=== PATIENT | female | born 1995 | race Caucasian/White ===

== ENCOUNTER → 2020-12-06 01:53 | Outpatient (CLI) | payer BC, SELFPAY ==
[2020-12-06 19:23] LABS: SARS-CoV-2 RNA PCR Negative
== END ==
PROVIDERS: PCP Nurse Practitioner Adult Health; Visit Provider Student in an Organized Health Care Education/Training Program
DX: Z01.812 Encounter for preprocedural laboratory examination (principal); Z20.822 Contact with and (suspected) exposure to COVID-19
CPT/HCPCS: C9803; U0003; U0005

== ENCOUNTER 2020-12-09 01:01 | Day surgery (SDC) | payer BC, SELFPAY ==
[2020-12-05 11:36] VITALS: BMI 19.8
--- NOTE | 2020-12-08 09:11 | WPDANESEPPF ---
Anes - Initial Pre Proc Eval Procedure: Operation Date: 12/09/20 10:30 Proposed Procedures p Loop Electrical Excision Procedure - Aliya Nichols MD Date/Time: 12/08/20 09:11 Surgeon: Aliya Nichols MD Pre Op Diagnosis: MARIA II Patient Data Age: 25 Gender: F Height: 1.73 m Weight: 59 kg Allergies Allergy/AdvReac Type Severity Reaction Status Date / Time Sulfa (Sulfonamide Allergy Severe Hives Verified 12/09/20 08:44 Antibiotics) sulfamethoxazole Allergy Severe Hives Verified 12/09/20 08:44 tetracycline Allergy Severe Hives Verified 12/09/20 08:44 trimethoprim Allergy Severe Hives Verified 12/09/20 08:44 MINOCYCLINE HCL Allergy Severe Rash Uncoded 12/05/20 11:34 Home Medications Medication Instructions Recorded Confirmed Type escitalopram oxalate 20 mg tablet 20 mg PO HS 10/28/20 12/09/20 History linaclotide 145 mcg capsule 145 mcg PO DAILY 11/30/20 12/09/20 History norethindrone-e.estradiol-iron 1 cap PO HS 12/05/20 12/09/20 History [Taytulla] ubrogepant [Ubrelvy] 50 mg PO ONCE 12/05/20 12/09/20 History Patient hx anesthesia problems: none Family hx anesthesia problems: none PMFSH Past Medical History Medical History Abnormal Pap smear of cervix 10/28/20 LSIL Anxiety and depression Endometriosis Gastroparesis Urinary incontinence Surgical History Surgical History H/O laparoscopy x 2 2012 2018 Family History Family History Grandparent Diabetes mellitus Mother Family history of thyroid disease Family history of migraine headaches Asthma Family history of anemia Family history of gynecological problem Father Family history of arthritis Other Family history of cardiovascular disease Family history of congestive heart failure Family history of elevated blood lipids Family history of hepatitis Family history of liver disease Family history of osteoporosis Social History Social History Smoking status: Never smoker Second hand tobacco smoke exposure: No Alcohol intake: current Alcohol use details: 2/MONTH Substance use: current Substance use type: marijuana Other substance usage details: FLOWER (SMOKE) EVERY COUPLE DAYS Last use: 12/04/20 Living arrangements: with family Spiritual care concerns: No Anes - Eval Final PreProcedure Day of Procedure 12/08/20 09:11 Patient weight: thin Heart: regular rate and rhythm Lungs: clear to auscultation and normal air movement Airway: Mallampati scale class II Neurological: alert and oriented Last oral intake: >/= 8 hours ASA classification: II Emergent: no Anesthetic plan: proceed Anesthesia type and monitoring: general GIVS and standard monitoring Informed Consent: The patient's anesthetic plan and its attendant risks and benefits were discussed with the patient/family/POA. Questions were solicited and answers provided to the satisfaction of the patient/family/POA.
--- NOTE | 2020-12-08 13:46 | PM.IMHP ---
H&P: HPI History of Present Illness Date/Time: 12/08/20 13:46 The patient is a 25yo nulligravid woman with a history of MARIA 2 who presents for a scheduled LEEP. Patient had a routine pap smear in 10/2020 that showed LGSIL. A colposcopy was performed in 11/2020 and cervical biopsy confirmed MARIA 2. Discussion had with patient regarding management options and decision was made proceed with LEEP procedure. Patient reports feeling well today without complaints. Chief Complaint: MARIA 2 Review of Systems Review of Systems: All systems reviewed & are unremarkable except as noted in HPI and below Constitutional: Constitutional: Reports as per HPI, Reports no additional constitutional complaints, Denies chills, Denies fever(s), Denies headache(s) and Denies night sweats Eyes: Eyes: Reports as per HPI and Reports no additional eye complaints ENT: Reports system reviewed and no additional complaints, except as documented, Reports as per HPI, Reports Normal hearing present and Denies headache(s) Cardiovascular: Cardiovascular: Reports as per HPI, Reports no additional cardiovascular complaints, Denies chest pain and Denies dyspnea Respiratory: Respiratory: Reports as per HPI, Reports no additional respiratory complaints, Denies cough and Denies dyspnea Gastrointestinal: Gastrointestinal: Reports as per HPI, Reports no additional gastrointestinal complaints, Denies abdominal pain, Denies change in bowel habits, Denies change in stool character, Denies nausea and Denies vomiting Genitourinary: Genitourinary: Reports no additional female genitourinary complaints, Reports as per HPI, Denies abnormal vaginal bleeding, Denies genital lesions, Denies hot flashes, Denies dyspareunia, Denies pelvic pain, Denies sexual dysfunction, Denies urinary incontinence, Denies vaginal discharge, Denies vaginal dryness and Denies vaginal odor Musculoskeletal: Musculoskeletal: Reports no additional musculoskeletal complaints and Reports as per HPI Integumentary/Breasts: Skin/Breast: Reports system reviewed and no additional complaints, except as docu, Reports as per HPI, Denies breast pain and Denies nipple discharge Neurologic: Reports system reviewed and no additional complaints, except as documented, Reports as per HPI, Reports Normal hearing present and Denies headache(s) Psychiatric: Psychiatric: Reports no additional psychiatric complaints, Reports as per HPI, Denies anxiety and Denies depression Endocrine: Endocrine: Reports no additional endocrine complaints and Reports as per HPI Hematologic/Lymphatic: Hematologic/Lymphatic: Reports no additional hematologic/lymphatic complaints and Reports as per HPI Allergic/Immunologic: Allergic/Immunologic: Reports no additional allergic/immunologic complaints and Reports as per HPI PMF Past Medical History Medical History Abnormal Pap smear of cervix 10/28/20 LSIL Anxiety and depression Endometriosis Gastroparesis Urinary incontinence Surgical History Surgical History H/O laparoscopy x 2 2012 2018 Family History Family History Grandparent Diabetes mellitus Mother Family history of thyroid disease Family history of migraine headaches Asthma Family history of anemia Family history of gynecological problem Father Family history of arthritis Other Family history of cardiovascular disease Family history of congestive heart failure Family history of elevated blood lipids Family history of hepatitis Family history of liver disease Family history of osteoporosis Social History Social History Smoking status: Never smoker Second hand tobacco smoke exposure: No Alcohol intake: current Substance use: current Substance use type: marijuana Other substance usage
[2020-12-09 09:08] VITALS: BP 113/83; PULSE 82; RESP 16; TEMP 36.9; O2SAT 100
[2020-12-09] MEDS: LACTATED RINGERS 1,000 ML 30 ML IV CONT ×2 (09:13→10:18)
[2020-12-09] MEDS: ACETAMINOPHEN 500 MG TABLET 1000 MG PO (09:14)
--- NOTE | 2020-12-09 09:15 | WPDHPUPDATE1 ---
History and Physical Update Update Date/Time: 12/09/20 09:15 History and Physical has been reviewed, including an updated exam of the patient. There are NO changes in the patient's condition. Risks, benefits, and alternatives have been discussed and questions answered. Patient agrees to proceed with procedure.
--- NOTE | 2020-12-09 09:19 | P.OP_ITS ---
Procedure Note - Detailed Date of procedure: 12/09/20 Pre-op diagnosis: MARIA II Post-op diagnosis: same Procedure performed: Loop electrosurgical excision procedure Description of procedure: The patient was taken to the operating room where she self-transferred to the operating room table. She was placed in dorsal supine position. Anesthesia was administered and found to be adequate. The patient was repositioned in dorsal lithotomy position and prepped and draped in the usual sterile fashion. A red rubber catheter was used to drain the bladder of 25cc of concentrated urine. A coated bivalve speculum was inserted into the vagina and suction tubing was connected to the speculum. The cervix was well visualized. A paracervical block was performed with 1% lidocaine. 5 cc of lidocaine was administered on both sides for a total of 10 cc. Lugol's solution was applied across the entire surface of the cervix. A wide area of non-uptake was noted circumferentially around the cervix encompassing almost the entire anterior surface of the cervix. A medium-size loop was selected and connected to the electrical generator. This loop was used to make two passes across the cervix, The first pass was made to excise the inferior portion of the anterior surface of the cervix. The specimen was removed and set aside. A second pass was made to excise the superior portion of the anterior surface of the cervix and this specimen was also set aside. The specimen were tagged with a suture. An endocervical curettage was performed. Rollerball cautery was used to cauterize the entire excision site and margins of the excision bed. Excellent hemostasis was noted. The procedure was deemed complete. The vagina was dried and the speculum was removed. Specimen were prepared to be sent to pathology for analysis. The patient was cleansed and dried. She was taken out of the dorsal lithotomy position and awakened from anesthesia without difficulty. She was transported to the recovery room in stable condition. All sponge and instrument counts were correct at the end of the procedure. Anesthesia: MAC Surgeon: Aliya Nichols MD Pick And Shovel Man: None Estimated blood loss (mL): 2 IV fluids (mL): 900 Urine output (mL): 25 Drains: No Packing: No Pathology: yes (anterior portion of cervix (superior), tagged at 12:00, os at 6:00; anterior portion of cervix (inferior), tagged at 6:00, os at 12:00; endoc ervical curettings) Complications: No immediate complications Condition: stable Disposition: same day Findings: Intraoperative findings: a wide area of non-uptake across almost entire anterior surface of cervix
[2020-12-09 10:18] VITALS: BP 82/44; PULSE 64; RESP 12; O2SAT 100
[2020-12-09 10:35] VITALS: BP 82/47; PULSE 55; RESP 12; O2SAT 99
[2020-12-09 11:00] VITALS: BP 118/71; PULSE 76; RESP 12
[2020-12-09 11:20] VITALS: BP 103/64; PULSE 62; RESP 12
== END 2020-12-09 11:27 | disposition home or self-care (01) ==
PROVIDERS: PCP Nurse Practitioner Adult Health; Visit Provider Student in an Organized Health Care Education/Training Program
PROC: 0UBC7ZZ Excision of Cervix, Via Natural or Artificial Opening (ICD-10-PCS; CPT 57522; principal; 2020-12-09 10:30)
DX: N87.1 Moderate cervical dysplasia (principal); N72 Inflammatory disease of cervix uteri; F41.9 Anxiety disorder, unspecified; F12.90 Cannabis use, unspecified, uncomplicated
CPT/HCPCS: 57522; 88305; A9270; C9803; J1100; J1885; J2250; J2405; J2704; J3010; J7120; U0003; U0005

== ENCOUNTER → 2022-10-15 09:08 | Outpatient (CLI) | payer OTHER, SELFPAY ==
--- NOTE | ~2022-10-15 | US_ITS ---
EXAMINATION: US pelvic complete w TV DATE: 10/15/2022 09:47 INDICATION: Abnormal uterine bleeding. Pelvic pain. TECHNIQUE: Multiple transabdominal and transvaginal sonographic images of the pelvis were obtained. COMPARISON: Ultrasound 03/17/2018 FINDINGS: TRANSABDOMINAL ULTRASOUND: The uterus measures 7.2 x 3.5 x 5.5 cm. There is no free fluid in the pelvis. TRANSVAGINAL ULTRASOUND: The endometrial complex measures 4 mm in thickness. There is an intrauterine device in expected posit ion. The right ovary measures 2.3 x 1.8 x 1.3 cm. The left ovary measures 2.4 x 1.3 x 1.3 cm. There i s normal vascular flow in the ovaries. IMPRESSION: 1. Intrauterine device in expected position. Reviewed, dictated and finalized at location A.
== END ==
PROVIDERS: PCP Obstetrics & Gynecology; Visit Provider Obstetrics & Gynecology
DX: R10.2 Pelvic and perineal pain (principal); Z97.5 Presence of (intrauterine) contraceptive device
CPT/HCPCS: 76830; 76856